=== PATIENT | female | born 1965 | race African-American/Black ===

== ENCOUNTER → 2016-05-14 | Outpatient (CLI) | payer OTHER ==
--- NOTE | 2016-05-23 11:22 | REPMRS ---
Patient History The patient states she has not had a clinical breast exam in over a year. Patient had first child at age 39. No known family history of cancer. Digital Mammo Screening Bilat: May 14, 2016 - Exam #: [id number] Bilateral CC and MLO view(s) were taken. Technologist: Nina Vega, Technologist Prior study comparison: June 19, 2009, bilateral screening mammogram, performed at [place], [place]. FINDINGS: There are scattered fibroglandular densities. There has been decrease in breast parenchymal density since the prior exam. There is a mild amount of residual fibroglandular tissue which is fairly symmetric. There is no interval development of dominant mass, architectural distortion, or clustered microcalcification suggestive of malignancy. Scattered lymph nodes are seen in the axilla. No significant changes when compared with prior studies. ASSESSMENT: BI-RADS/ACR category 2 mammogram. Benign finding(s). Recommendation Routine screening mammogram in 1 year (for women over age 40). This mammogram was interpreted with the aid of an FDA-approved computer-aided dectection system. A. Negative x-ray reports should not delay biopsy if a dominant or clinically suspicious mass is present. B. Four to eight percent of cancers are not identified by mammography. C. Adenosis and dense breast may obscure an underlying neoplasm. Electronically Signed By: Jefry Bourne MD 05/23/16 [id number]
== END ==
LOC: M RAD 10:39
PROVIDERS: ATTEND Physician Assistant Medical
DX: Z12.31 Encounter for screening mammogram for malignant neoplasm of breast (principal)

== ENCOUNTER 2018-03-11 11:56 | Day surgery (SDC) | payer OTHER ==
[~2018-03-11] VITALS: Ht 175.3 cm; Wt 88.4 kg
[~2018-03-11 11:56] MED LIST: HYDR25TAB PO; LISI40TAB PO; METF500T13 PO; NS 1,000 ML IV ONE
[2018-03-11] MEDS ORDERED: PROPOFOL 200 MG/20 ML VIAL As Ordered ONE ×2 (13:09→13:10)
[2018-03-11] MEDS ORDERED: LIDOCAINE 2% INJ 100 MG/5 ML SDV (FOR ANES.) As Ordered ONE (13:10)
--- NOTE | 2018-03-11 13:42 | ROOR ---
Patient Name: Roxnaa Jimenes Procedure Date: 03/11/2018 1:24 PM Date of : 1965 Age: 52 Room: [facility] Gender: Female Note Status: Finalized Procedure: Colonoscopy Indications: Screening for colorectal malignant neoplasm Providers: Ariel Ariza Jr, MD Referring MD: LAURYN COMBS MD Requesting Provider: Medicines: Propofol per Anesthesia Complications: No immediate complications. Procedure: Pre-Anesthesia Assessment: - Prior to the procedure, a History and Physical was performed, and patient medications and allergies were reviewed. The patient is competent. The risks and benefits of the procedure and the sedation options and risks were discussed with the patient. All questions were answered and informed consent was obtained. Patient identification and proposed procedure were verified by the physician and the nurse in the pre-procedure area and in the procedure room. Mental Status Examination: alert and oriented. Airway Examination: normal oropharyngeal airway and neck mobility. Respiratory Examination: clear to auscultation. CV Examination: normal. ASA Grade Assessment: II - A patient with mild systemic disease. After reviewing the risks and benefits, the patient was deemed in satisfactory condition to undergo the procedure. The anesthesia plan was to use moderate sedation / analgesia (conscious sedation). Immediately prior to administration of medications, the patient was re-assessed for adequacy to receive sedatives. The heart rate, respiratory rate, oxygen saturations, blood pressure, adequacy of pulmonary ventilation, and response to care were monitored throughout the procedure. The physical status of the patient was re-assessed after the procedure. The Colonoscope was introduced through the anus and advanced to the cecum, identified by appendiceal orifice and ileocecal valve. The colonoscopy was performed without difficulty. The patient tolerated the procedure well. The quality of the bowel preparation was adequate. Findings: The rectum, recto-sigmoid colon, sigmoid colon, descending colon, transverse colon, ascending colon, cecum, appendiceal orifice and ileocecal valve appeared normal. Impression: - The rectum, recto-sigmoid colon, sigmoid colon, descending colon, transverse colon, ascending colon, cecum, appendiceal orifice and ileocecal valve are normal. - No specimens collected. Recommendation: - Discharge patient to home (ambulatory). - Repeat colonoscopy in 10 years for screening purposes. Ariel Ariza MD Ariel Ariza Jr, MD 03/11/2018 1:41:24 PM This report has been signed electronically. Number of Addenda: 0 Note Initiated On: 03/11/2018 1:24 PM Estimated Blood Loss: Estimated blood loss: none.
[2018-03-11 14:50] VITALS: BP 141/83
== END 2018-03-11 15:05 | disposition home or self-care (01) ==
LOC: M OPP 11:56
PROVIDERS: ATTEND Surgery
DX: Z12.11 Encounter for screening for malignant neoplasm of colon (principal)

== ENCOUNTER → 2018-06-02 | Outpatient (REF) | payer OTHER ==
[~2018-06-02] MED LIST changes: +LISI40TA PO; -LISI40TAB PO; -NS 1,000 ML IV ONE
[2018-06-02 18:26] LABS: C REACTIVE PROTEIN QUANTITATIV < 0.30 MG/DL (0.00-0.30); FERRITIN 100 NG/ML (8-252)
[2018-06-02 18:47] LABS: HEMATOCRIT 36.5 % (36.0-47.0); HEMOGLOBIN 11.3 g/dl (12.0-15.5); MEAN CORPUSCULAR HEMOGLOBIN 25.9 pg (27.0-33.0); MEAN CORPUSCULAR VOLUME 83.7 fl (80.0-96.0); PLATELET COUNT, AUTOMATED 208 10^3/uL (150-450); RED BLOOD COUNT 4.36 10^6/uL (4.00-5.40); WHITE BLOOD COUNT 3.3 10^3/uL (4.0-10.0)
[2018-06-02 19:11] LABS: ERYTHROCYTE SEDIMENTATION RATE 16 mm/hr (0-30)
[2018-06-14 00:06] LABS: VITAMIN B7 (BIOTIN) 0.13 ng/mL (0.05-0.83); VITAMIN D 1,25 DIHYDROXY 32.2 pg/mL (19.9-79.3)
== END ==
LOC: M SFHCPLAZ 12:14
PROVIDERS: ATTEND Dermatology
DX: L66.9 Cicatricial alopecia, unspecified (principal)
CPT/HCPCS: 36415; 82652; 82728; 84591; 85027; 85652; 86140; 86780; G0463

== ENCOUNTER → 2021-02-14 | Outpatient (REF) ==
[~2021-02-14] MED LIST changes: +HYDR-3490 PO; -HYDR25TAB PO; -LISI40TA PO; +LISI40TA4 PO
== END ==
LOC: M LABSMTC 11:16
PROVIDERS: ATTEND Family Medicine
DX: Z20.828 Contact with and (suspected) exposure to other viral communicable diseases (principal)